=== PATIENT | female | born 1990 | race Two or more races ===

== ENCOUNTER 2017-12-29 12:46 | Emergency (ER) | payer OTHER ==
[~2017-12-29] VITALS: Ht 157.5 cm; Wt 72.6 kg
[~2017-12-29 12:46] MED LIST: FLEXERIL10 MG PO; NABUMETONE750 MG PO
== END 2017-12-29 19:22 | disposition home or self-care (01) ==
LOC: ER 12:46
DX: O20.8 Other hemorrhage in early pregnancy (principal); Z34.81 Encounter for supervision of other normal pregnancy, first trimester

== ENCOUNTER 2018-08-10 23:43 | Outpatient (CLI) | payer OTHER | END 2018-08-11 16:20 | disposition home or self-care (01) | LOC: OBS/DEL 23:43 | DX: O47.1 False labor at or after 37 completed weeks of gestation (principal); Z34.83 Encounter for supervision of other normal pregnancy, third trimester ==

== ENCOUNTER 2018-08-17 07:22 | Inpatient (IN) | payer OTHER ==
[~2018-08-17] VITALS: Ht 157.5 cm; Wt 77.6 kg
[2018-08-20] MEDS ORDERED: PRENA1 CHEW TA1.4 MG PO (09:08)
== END 2018-08-20 13:52 | DRG 807 ==
LOC: LDR 07:22 → OB/GYN 08-18 00:14
PROVIDERS: ADMIT Obstetrics & Gynecology
PROC: 10E0XZZ Delivery of Products of Conception, External Approach (ICD-10-PCS; principal; 2018-08-17)
PROC: 4A1HXCZ Monitoring of Products of Conception, Cardiac Rate, External Approach (ICD-10-PCS; 2018-08-17)
DX: O80 Encounter for full-term uncomplicated delivery (principal); Z37.0 Single live birth; Z3A.39 39 weeks gestation of pregnancy; Z22.330 Carrier of Group B streptococcus